=== PATIENT | female | born 1985 | race Caucasian/White ===

== ENCOUNTER 2017-02-17 20:01 | Emergency (ER) | payer OTHER | END 2017-02-17 21:40 | disposition home or self-care (01) | LOC: ER 20:01 | DX: M54.2 Cervicalgia (principal); G56.02 Carpal tunnel syndrome, left upper limb; R20.0 Anesthesia of skin; E11.9 Type 2 diabetes mellitus without complications; Z79.899 Other long term (current) drug therapy; Z79.4 Long term (current) use of insulin; Z88.1 Allergy status to other antibiotic agents | CPT/HCPCS: 72125; 99070; 99284-25 ==